=== PATIENT | male | born 1980 | race African-American/Black ===

== ENCOUNTER 2016-12-29 00:39 | Emergency (ER) | payer OTHER, BC ==
[~2016-12-29] VITALS: Ht 172.7 cm; Wt 102.1 kg
[2016-12-29 02:08] LABS: HEMATOCRIT 41.6 % (38.0-50.0); MCH 30.2 PG (29.0-34.0); MCHC 35.8 G/DL (30.0-36.0); MCV 84.4 FL (86-99); MEAN PLAT.VOLUME 10.7 uM^3 (9.0-12.4); PLATELET COUNT 179 K/uL (156-360); RBC DIS.WIDTH-CV 12.9 % (11.8-14.6); RBC DIS.WIDTH-SD 38.8 % (39-53); RED BLOOD COUNT 4.93 M/uL (4.00-5.50); WHITE BLOOD COUNT 6.4 K/uL (4.1-10.2)
[2016-12-29 02:20] LABS: CHLORIDE 106 mEq/L (99-109); POTASSIUM 3.7 mEq/L (3.7-5.4); SODIUM 139 mEq/L (136-147)
[2016-12-29 02:23] LABS: GLUCOSE 121 mg/dL (70-99)
[2016-12-29 02:24] LABS: ANION GAP 10 MEQ/L (2-14)
[2016-12-29 02:25] LABS: TOTAL BILIRUBIN 0.2 mg/dL (0.0-1.0)
[2016-12-29 02:26] LABS: ALKALINE PHOSPHATASE 64 IU/L (3-129); GFR ESTIMATE (CALCULATED) > 59 mL/min/
[2016-12-29 02:28] LABS: UREA NITROGEN (BUN) 14 mg/dL (9-23)
[2016-12-29 02:30] LABS: LIPASE 36 U/L (1.0-51.0)
[2016-12-29 02:38] LABS: ADD MIUA? NO; BILIRUBIN NEGATIVE; BLOOD NEGATIVE; COLOR YELLOW ((YELLOW)); GLUCOSE (STRIP) NEGATIVE; KETONES NEGATIVE; LEUKOCYTES NEGATIVE; NITRITE NEGATIVE; PROTEIN (STRIP) NEGATIVE; SPECIFIC GRAVITY 1.013 (1.000-1.030); UCUL ADDED? NO; UROBILINOGEN 0.2 MG/DL (0.2-1.0)
[2016-12-29] MEDS ORDERED: MOTRIN600 MG PO (03:00)
[2016-12-29 03:36] VITALS: BP 137/86
== END 2016-12-29 03:38 | disposition home or self-care (01) ==
LOC: EME 00:39
PROVIDERS: Physician Assistant
DX: S09.90XA Unspecified injury of head, initial encounter (principal); S20.211A Contusion of right front wall of thorax, initial encounter; V49.40XA Driver injured in collision with unspecified motor vehicles in traffic accident, initial encounter
CPT/HCPCS: 70450; 71260; 74177; 80053; 81003; 83690; 85027; 99281; 99284; J1885; J2405